=== PATIENT | female | born 1995 | race Caucasian/White ===

== ENCOUNTER 2018-05-27 19:38 | Emergency (ER) | payer OTHER ==
[2018-05-27] MEDS: IBUPROFEN 800 MG TAB PO (20:53)
== END 2018-05-27 21:38 | disposition home or self-care (01) ==
LOC: M ED 19:38
DX: S69.91XA Unspecified injury of right wrist, hand and finger(s), initial encounter (principal); X50.0XXA Overexertion from strenuous movement or load, initial encounter; Y92.59 Other trade areas as the place of occurrence of the external cause; Y99.0 Civilian activity done for income or pay; M79.9 Soft tissue disorder, unspecified; Z79.3 Long term (current) use of hormonal contraceptives
CPT/HCPCS: 73110